=== PATIENT | male | born 1945 | race Caucasian/White ===

== ENCOUNTER → 2016-10-17 | Outpatient (CLI) | payer BC ==
[~2016-10-17] MED LIST: ATEN50TA8 PO; ATOR-24 PO; CEPH500C PO; CLON0.3T PO; CTP3 PO; DULA0.5I INJ; DULA1INJ SC; FRS/40 PO; GLC500 PO; GLCSR5 PO; GLIP-199 PO; LISI40TA PO; METF-384 PO
[2016-10-17 12:36] LABS: ALB/GLOB RATIO 1.1 (0.9-2); ALKALINE PHOSPHATASE 115 U/L (45-117); ALT/SGPT 27 U/L (12-78); AST/SGOT 18 U/L (15-37); BLOOD UREA NITROGEN 26 mg/dl (7-18); BUN/CREATININE RATIO 23.3 (10-20); CARBON DIOXIDE 28 mmol/L (21-32); CHLORIDE 98 mmol/L (98-107); GLUCOSE 302 mg/dl (70-99); HDL CHOLESTEROL 37 mg/dl; POTASSIUM 3.9 mmol/L (3.5-5.1); SODIUM 135 mmol/L (136-145)
[2016-10-17 12:47] LABS: CHOLESTEROL 182 mg/dl (0-200); CHOLESTEROL/HDL RATIO 4.9; LDL CHOLESTEROL CALCULATED 78 mg/dl; TRIGLYCERIDES 337 mg/dl (0-150); VERY LOW DENSITY LIPOPROT CALC 67 mg/dl
[2016-10-17 12:54] LABS: BETA-HYDROXYBUTYRATE 8.11 mg/dL (0.2-2.81)
[2016-10-17 13:09] LABS: ESTIMATED AVERAGE GLUCOSE 269 mg/dl; HA1C FLAG Normal (Normal)
== END | disposition home or self-care (01) ==
LOC: C.LABBFT 08:44
PROVIDERS: ATTEND Internal Medicine
DX: E11.29 Type 2 diabetes mellitus with other diabetic kidney complication (principal)

== ENCOUNTER 2017-01-04 09:54 | Emergency (ER) | payer BC ==
[~2017-01-04] VITALS: Ht 175.3 cm; Wt 121.9 kg
[~2017-01-04 09:54] MED LIST changes: -CEPH500C PO; -CLON0.3T PO; -DULA0.5I INJ; -GLIP-199 PO; -METF-384 PO
[2017-01-04 10:00] VITALS: O2SAT 92
[2017-01-04 10:01] VITALS: TEMP 37.2; Ht 175.3 cm; Wt 121.9 kg
--- NOTE | 2017-01-04 10:38 | EMERGENCY ROOM VISIT NOTE ---
History Report prepared by Jen: Naga Garcia Under the Supervision of: Dr. Froilan Melendez M.D. First contact with patient: 10:20 Chief Complaint: EDEMA TO EXTREMITY Stated Complaint: LOWER EXTREMITY EDEMA History of Present Illness The patient is a 71 year old male who presents to the Emergency Room with complaints of constant bilateral leg swelling for the past month. The patient states that he has been taking his Lasix regularly, though he did not take it this morning, and he states that he is not currently on any blood thinners. The patient denies any chest pain, shortness of breath, congestion, nausea, vomiting , diarrhea, constipation, or urinary symptoms. He states that his legs are usually swollen, though this is worse than usual. The patient states that in the past his legs have been much more swollen. He states that he does not have a history of blood clots. He states that he was recently in physical therapy for his lymphedema. The patient additionally noted that he started to get a rash on his legs yesterday or today. The patient denies any fever or chills. Source of History: patient Onset: a month ago Position: leg (bilateral) Quality: other (swelling) Timing: constant Associated Symptoms: + rash, No fevers, No chills, No chest pain, No SOB, No nausea, No vomiting, No diarrhea, No urinary symptoms Review of Systems See HPI for pertinent positives and negatives. A total of ten systems were reviewed and were otherwise negative. Past Medical & Surgical Medical Problems: (1) Lymphedema Family History Diabetes mellitus Hypertension Social History Smoking Status: Never Smoker Marital Status: single Occupation Status: disabled Current/Historical Medications Scheduled Atenolol (Tenormin), 50 MG PO BID Atorvastatin (Lipitor), 40 MG PO HS Cephalexin Monohydrate (Keflex), 500 MG PO QID Clonidine Hcl (Catapres), 0.3 MG PO BID Dulaglutide (Trulicity), 1.5 MG INJ WK Furosemide (Lasix), 40 MG PO BID Glipizide (Glipizide Er), 10 MG PO BID Lisinopril (Zestril), 40 MG PO DAILY Metformin Hcl (Glucophage), 1,000 MG PO BIDM Allergies Coded Allergies: No Known Allergies (Unverified , 11/08/15) Physical Exam Vital Signs Date Time Temp Pulse Resp B/P (MAP) Pulse Ox O2 Delivery O2 Flow Rate FiO2 01/04/17 12:56 88 18 163/86 95 Room Air 01/04/17 11:48 89 18 163/87 97 Room Air 01/04/17 10:02 97 01/04/17 10:01 37.2 97 18 185/98 94 Room Air 01/04/17 10:00 92 Room Air Physical Exam GENERAL: Awake, alert, well-appearing, in no distress HENT: Dry mucous membranes. Normocephalic, atraumatic. Oropharynx unremarkable. EYES: Normal conjunctiva. Sclera non-icteric. NECK: Supple. No nuchal rigidity. FROM. No JVD. RESPIRATORY: Clear to auscultation. CARDIAC: 3/6 systolic murmur. Regular rate, normal rhythm. Extremities warm and well perfused. Pulses equal. ABDOMEN: Obese abdomen, but soft, non-distended. No tenderness to palpation. No rebound or guarding. No masses. RECTAL: Deferred. MUSCULOSKELETAL: Chest examination reveals no tenderness. The back is symmetrical on inspection without obvious abnormality. There is no CVA tenderness to palpation. No joint edema. LOWER EXTREMITIES: 2+ bilateral lower extremity edema mostly above the ankles. Mild erythema and warmth in the left upper leg without area of induration or fluctuance. Scattered excoriations. No areas of purulence. Erythema and warmth extends underneath the left lower abdomen under his pannus. NEURO: Normal sensorium. No sensory or motor deficits noted. SKIN: No rash or jaundice noted. Medical Decision & Procedures ER Provider Diagnostic Interpretation: Radiology results as stated below per my review and radiologist interpretation: VENOUS DOPPLER LW EXT BILAT HISTORY: Pain. Edema. BLE edema COMPARISON STUDY: None. FINDINGS: There is normal compressibility, flow, and augmentation within the bilateral lower extremity deep venous systems. IMPRESSION: No DVT within the right or left lower extremity. The above report was generated using voice recognition software. It may contain grammatical, syntax or spelling errors. Electronically signed by: Fan Jorge M.D. 01/04/2017 11:37 AM Dictated Date/Time: 01/04/2017 11:36 AM SINGLE VIEW CHEST CLINICAL HISTORY: Atypical chest pain. FINDINGS: An AP, portable, upright chest radiograph is compared to study dated 09/17/2010. The examination is degraded by portable technique and patient rotation. The cardiomediastinal silhouette is unremarkable. There is mild atherosclerotic calcification of the thoracic aorta. A small calcified granuloma is present at the left apex. No airspace consolidation, large pleural effusion, or pneumothorax is seen. The skeletal structures are osteopenic. Arthritic change is seen in the shoulders. IMPRESSION: No acute cardiopulmonary abnormality. Electronically signed by: Micheal Mars M.D. 01/04/2017 10:52 AM Dictated Date/Time: 01/04/2017 10:50 AM Laboratory Results 01/04/17 10:06 Red Blood Count 4.67, Mean Corpuscular Volume 88.4, Mean Corpuscular Hemoglobin 30.0, Mean Corpuscular Hemoglobin Concent 33.9, Mean Platelet Volume 8.3, Neutrophils (%) (Auto) 66.2, Lymphocytes (%) (Auto) 21.3, Monocytes (%) (Auto) 9.4, Eosinophils (%) (Auto) 2.1, Basophils (%) (Auto) 0.5, Neutrophils # (Auto) 3.72, Lymphocytes # (Auto) 1.20, Monocytes # (Auto) 0.53, Eosinophils # (Auto) 0.12, Basophils # (Auto) 0.03 01/04/17 10:06 Test 01/04/17 10:06 White Blood Count 5.63 K/uL (4.8-10.8) Red Blood Count 4.67 M/uL (4.7-6.1) Hemoglobin 14.0 g/dL (14.0-18.0) Hematocrit 41.3 % (42-52) Mean Corpuscular Volume 88.4 fL (80-100) Mean Corpuscular Hemoglobin 30.0 pg (25-34) Mean Corpuscular Hemoglobin Concent 33.9 g/dl (32-36) Platelet Count 137 K/uL (130-400) Mean Platelet Volume 8.3 fL (7.4-10.4) Neutrophils (%) (Auto) 66.2 % Lymphocytes (%) (Auto) 21.3 % Monocytes (%) (Auto) 9.4 % Eosinophils (%) (Auto) 2.1 % Basophils (%) (Auto) 0.5 % Neutrophils # (Auto) 3.72 K/uL (1.4-6.5) Lymphocytes # (Auto) 1.20 K/uL (1.2-3.4) Monocytes # (Auto) 0.53 K/uL (0.11-0.59) Eosinophils # (Auto) 0.12 K/uL (0-0.5) Basophils # (Auto) 0.03 K/uL (0-0.2) RDW Standard Deviation 44.3 fL (36.4-46.3) RDW Coefficient of Variation 13.7 % (11.5-14.5) Immature Granulocyte % (Auto) 0.5 % Immature Granulocyte # (Auto) 0.03 K/uL (0.00-0.02) Anion Gap 9.0 mmol/L (3-11) Est Creatinine Clear Calc Drug Dose 94.7 ml/min Estimated GFR () 94.3 Estimated GFR (Non- 81.3 BUN/Creatinine Ratio 23.6 (10-20) Calcium Level 9.0 mg/dl (8.5-10.1) Total Bilirubin 1.4 mg/dl (0.2-1) Direct Bilirubin 0.4 mg/dl (0-0.2) Aspartate Amino Transf (AST/SGOT) 27 U/L (15-37) Alanine Aminotransferase (ALT/SGPT) 38 U/L (12-78) Alkaline Phosphatase 127 U/L (45-117) Troponin I < 0.015 ng/ml (0-0.045) Pro-B-Type Natriuretic Peptide 157 pg/ml (0-900) Total Protein 7.3 gm/dl (6.4-8.2) Albumin 3.6 gm/dl (3.4-5.0) Lipase 110 U/L (73-393) Laboratory results reviewed by me Medications Administered Medications (Trade) Dose Ordered Sig/Sumeet Route Start Time Stop Time Status Last Admin Dose Admin Furosemide (Lasix Tab) 40 mg NOW ONCE PO 01/04/17 12:45 01/04/17 12:46 DC 01/04/17 12:45 40 MG Cephalexin Monohydrate (Keflex Cap) 500 mg NOW ONCE PO 01/04/17 12:45 01/04/17 12:46 DC 01/04/17 12:46 500 MG ECG Indication: other (leg swelling) Rate (beats per minute): 92 Rhythm: normal sinus Findings: no acute ischemic change, other (Normal axis) ED Course 1020: The patient was evaluated in room A4. A complete history and physical exam was performed. 1244: I reevaluated the patient. Discussed results and discharge instructions: He verbalized understanding and agreement. The patient is ready for discharge. 1245: Keflex Cap 500mg PO, Lasix Tab 40mg PO Medical Decision I reviewed the patient's past medical history, medications, and the nursing notes as described above. Differential diagnoses include: chronic lymphedema, CHF, PE, cellulitis, and pneumonia Patient is a 71-year-old gentleman with a past medical history of chronic lymphedema on Lasix presents to emergency department with the complaint of lower extremity swelling which she says is actually good for him and has been constant for the past month but today just thought he should get it checked to make sure its not a clot per history of present illness. On arrival the patient is in no acute distress, afebrile with stable vital signs satting 98% on room air. Clear lungs. No JVD. 2+ bilateral extremity edema proximal to the ankles. Has mild erythema and warmth to the upper left leg with scattered areas of excoriation otherwise no areas of induration and fluctuance or purulence concerning for abscess. We will check labs and will perform duplex of lower extremities to rule out alternative etiologies for the patients chronic edema. Otherwise anticipate the patient will require antibiotic treatment for lower extremity cellulitis. EKG, chest x-ray, and labs unremarkable. Duplex of bilateral lower extremities negative for DVT. The patient was reassessed and still denies any new symptoms. Thus patient was given his home Lasix dose and was started on Keflex for his cellulitis. Findings and plan for follow-up d/w patient. Patient agreeable and d/c'd per discharge instructions. Medication Reconcilliation Current Medication List: was personally reviewed by me Blood Pressure Screening Patient's blood pressure: Elevated blood pressure Blood pressure disposition: Referred to PCP Impression Primary Impression: Cellulitis, leg Additional Impression: Lymphedema Scribe Attestation The scribe's documentation has been prepared under my direction and personally reviewed by me in its entirety. I confirm that the note above accurately reflects all work, treatment, procedures, and medical decision making performed by me. Departure Information Dispostion Home / Self-Care Prescriptions Cephalexin Monohydrate (Keflex) 500 Mg Cap 500 MG PO QID for 7 Days, #28 CAP Prov: Cross, Froilan E., M.D. 01/04/17 Referrals Carlos Damico M.D. (PCP) Forms HOME CARE DOCUMENTATION FORM, IMPORTANT VISIT INFORMATION, WORK / SCHOOL INSTRUCTIONS Patient Instructions Cellulitis - [facility], Cellulitis Dc, ED Lymphedema, My [facility] Additional Instructions Please follow up with your primary care physician in the next 1-3 days for reevaluation and to repeat your lab tests. Otherwise, your exam, EKG, chest x-ray, lab results, and ultrasound of your legs did not show signs of an emergent condition at this time. Take Keflex as directed for your skin infection. Continue your other medications as prescribed. Return to the emergency department for worsening symptoms as described in the accompanying instructions. Problem Qualifiers
[2017-01-04 10:53] LABS: BASO % 0.5 %; BASO ABS # 0.03 K/uL (0-0.2); COMPLETE YES; EOS % 2.1 %; HEMATOCRIT 41.3 % (42-52); IG% 0.5 %; LYMPH % 21.3 %; MEAN CELL VOLUME 88.4 fL (80-100); MEAN CORPUSCULAR HGB CONC 33.9 g/dl (32-36); MEAN PLATELET VOLUME 8.3 fL (7.4-10.4); MONO % 9.4 %; NEUT % 66.2 %; PLATELET COUNT 137 K/uL (130-400); RED BLOOD COUNT 4.67 M/uL (4.7-6.1); WHITE BLOOD COUNT 5.63 K/uL (4.8-10.8)
--- NOTE | 2017-01-04 10:53 | DIAGNOSTIC IMAGING REPORT ---
SINGLE VIEW CHEST CLINICAL HISTORY: Atypical chest pain. FINDINGS: An AP, portable, upright chest radiograph is compared to study dated 09/17/2010. The examination is degraded by portable technique and patient rotation. The cardiomediastinal silhouette is unremarkable. There is mild atherosclerotic calcification of the thoracic aorta. A small calcified granuloma is present at the left apex. No airspace consolidation, large pleural effusion, or pneumothorax is seen. The skeletal structures are osteopenic. Arthritic change is seen in the shoulders. IMPRESSION: No acute cardiopulmonary abnormality. Electronically signed by: Micheal Mars M.D. 01/04/2017 10:52 AM Dictated Date/Time: 01/04/2017 10:50 AM
[2017-01-04 11:00] LABS: ALT/SGPT 38 U/L (12-78); BLOOD UREA NITROGEN 22 mg/dl (7-18); BUN/CREATININE RATIO 23.6 (10-20); CARBON DIOXIDE 29 mmol/L (21-32); CHLORIDE 96 mmol/L (98-107); CREATININE 0.95 mg/dl (0.60-1.40); GLUCOSE 278 mg/dl (70-99); POTASSIUM 3.8 mmol/L (3.5-5.1); SODIUM 134 mmol/L (136-145)
[2017-01-04 11:05] LABS: ALKALINE PHOSPHATASE 127 U/L (45-117); AST/SGOT 27 U/L (15-37)
--- NOTE | 2017-01-04 11:38 | DIAGNOSTIC IMAGING REPORT ---
VENOUS DOPPLER LW EXT BILAT HISTORY: Pain. Edema. BLE edema COMPARISON STUDY: None. FINDINGS: There is normal compressibility, flow, and augmentation within the bilateral lower extremity deep venous systems. IMPRESSION: No DVT within the right or left lower extremity. The above report was generated using voice recognition software. It may contain grammatical, syntax or spelling errors. Electronically signed by: Fan Jorge M.D. 01/04/2017 11:37 AM Dictated Date/Time: 01/04/2017 11:36 AM
[2017-01-04] MEDS ORDERED: METF-384 PO (11:53)
[2017-01-04] MEDS ORDERED: DULA0.5I INJ (11:53)
[2017-01-04] MEDS ORDERED: CLON0.3T PO (11:53)
[2017-01-04] MEDS ORDERED: GLIP-199 PO (11:53)
[2017-01-04] MEDS ORDERED: CEPHALEXIN MONOHYDRATE 250 MG CAP PO ONE (12:45)
[2017-01-04] MEDS ORDERED: FUROSEMIDE 40 MG TAB PO ONE (12:45)
[2017-01-04] MEDS ORDERED: CEPH500C PO (12:55)
[2017-01-04 12:56] VITALS: BP 163/86; PULSE 88; O2SAT 95
== END 2017-01-04 13:00 | disposition home or self-care (01) ==
LOC: EDBD 09:54 → C.EDA 09:56
DX: L03.115 Cellulitis of right lower limb (principal); L03.116 Cellulitis of left lower limb; Z79.899 Other long term (current) drug therapy; I89.0 Lymphedema, not elsewhere classified; Z83.3 Family history of diabetes mellitus; Z82.49 Family history of ischemic heart disease and other diseases of the circulatory system

== ENCOUNTER → 2017-04-17 | Outpatient (CLI) | payer BC ==
[~2017-04-17] MED LIST changes: +CLON0.3T PO; -CTP3 PO; +DULA0.5I INJ; -DULA1INJ SC; -GLC500 PO; -GLCSR5 PO; +GLIP-199 PO; +METF-384 PO
[2017-04-17 12:38] LABS: HEMATOCRIT 42.4 % (42-52); MEAN CELL VOLUME 91.4 fL (80-100); MEAN CORPUSCULAR HEMOGLOBIN 31.3 pg (25-34); MEAN CORPUSCULAR HGB CONC 34.2 g/dl (32-36); MEAN PLATELET VOLUME 8.6 fL (7.4-10.4); PLATELET COUNT 170 K/uL (130-400); RED BLOOD COUNT 4.64 M/uL (4.7-6.1); WHITE BLOOD COUNT 6.95 K/uL (4.8-10.8)
[2017-04-17 13:09] LABS: ESTIMATED AVERAGE GLUCOSE 220 mg/dl; HA1C FLAG Normal (Normal)
[2017-04-17 13:12] LABS: ALT/SGPT 29 U/L (12-78); AST/SGOT 19 U/L (15-37); BLOOD UREA NITROGEN 17 mg/dl (7-18); BUN/CREATININE RATIO 16.2 (10-20); CALCIUM 9.2 mg/dl (8.5-10.1); CARBON DIOXIDE 31 mmol/L (21-32); CHLORIDE 97 mmol/L (98-107); CHOLESTEROL 140 mg/dl (0-200); CREATININE 1.02 mg/dl (0.60-1.40); GLUCOSE 163 mg/dl (70-99); POTASSIUM 3.7 mmol/L (3.5-5.1); SODIUM 134 mmol/L (136-145)
[2017-04-17 13:31] LABS: ALB/GLOB RATIO 1.1 (0.9-2); ALKALINE PHOSPHATASE 122 U/L (45-117); CHOLESTEROL/HDL RATIO 4.2; HDL CHOLESTEROL 33 mg/dl; LDL CHOLESTEROL CALCULATED 62 mg/dl; TRIGLYCERIDES 227 mg/dl (0-150); VERY LOW DENSITY LIPOPROT CALC 45 mg/dl
[2017-04-17 13:58] LABS: RATIO 28.6 mcg/mg (0-30.0)
== END | disposition home or self-care (01) ==
LOC: C.LABBFT 07:51
PROVIDERS: ATTEND Internal Medicine
DX: E11.29 Type 2 diabetes mellitus with other diabetic kidney complication (principal)